=== PATIENT | male | born 1960 | race Caucasian/White ===

== ENCOUNTER → 2020-02-20 10:36 | Outpatient (CLI) | payer OTHER, SELFPAY ==
--- NOTE | ~2020-02-20 | CT_ITS ---
EXAMINATION: CT lung screening DATE: 02/20/2020 10:49 INDICATION: Personal history of tobacco dependence, current smoker with 30 pack year history TECHNIQUE: Computed tomography (CT) of the chest was performed without intravenous contrast. The dose -length product (DLP) was 52.91 mGy-cm. Automated exposure control and iterative reconstruction techn ique were employed. COMPARISON: None FINDINGS: There is moderate emphysema. Scattered small pulmonary nodules are identified. The largest measures 2 mm in the left upper lobe. Calcified pulmonary nodules and calcified bilateral hilar and m ediastinal lymph nodes are consistent with old granulomatous disease. The lungs are free of acute op acities. There is no pleural effusion or pneumothorax. There is calcified coronary artery atheroscler osis. The heart size is normal. There are no pathologically enlarged thoracic lymph nodes. IMPRESSION: 1. Lung-RADS category 2: Benign appearance or behavior. Continue annual screening with noncontrast lo w-dose chest CT in 12 months. Reviewed, dictated and finalized at location A. IMPRESSION: 1. Lung-RADS category 2: Benign appearance or behavior. Continue annual screeni ng with noncontrast low-dose chest CT in 12 months.
== END ==
PROVIDERS: PCP Family Medicine; Visit Provider Family Medicine
DX: Z12.2 Encounter for screening for malignant neoplasm of respiratory organs (principal); Z87.891 Personal history of nicotine dependence
CPT/HCPCS: G0297

== ENCOUNTER 2020-08-04 15:12 | Emergency (ER) | payer OTHER, SELFPAY ==
--- NOTE | 2020-08-04 15:17 | ED.MALEGU ---
HPI - Male Genitourinary General Chief complaint: Urogenital-Male Stated complaint: BLOOD IN URINE Source: patient Mode of arrival: ambulatory Limitations: no limitations History of Present Illness HPI Narrative: Patient is a 59-year-old male who presents complaining of hematuria. He denies urinary frequency, urgency or dysuria. He denies exposure STD. He reports pink-tinged urine this a.m. which has progressed to dark red urine at this time. He denies pain, he denies flank pain, fever or other complaints. Patient is not on anticoagulants at this time. MD Complaint: other (Hematuria) Related Data Home Medications Medication Instructions Recorded Confirmed Centrum Silver Men 1 tablet PO DAILY 08/04/20 08/04/20 Allergies Allergy/AdvReac Type Severity Reaction Status Date / Time No Known Allergies Allergy Verified 08/04/20 15:18 Review of Systems Review of Systems: Narrative: CONSTITUTIONAL: Denies fever, chills, or sweats. EYES: Denies visual changes, redness, or discharge. ENT: Denies rhinorrhea, congestion, sore throat, or otalgia. CARDIOVASCULAR: Denies chest pain, palpitations, or edema. RESPIRATORY: Denies cough or dyspnea. GASTROINTESTINAL: Denies abdominal pain, nausea, vomiting, or diarrhea. GENITOURINARY: Reports hematuria. SKIN: Denies rash or itching. MUSCULOSKELETAL: Denies back pain, joint pain, or myalgia. NEUROLOGIC: Denies headache, numbness, dizziness, or weakness. PSYCHIATRIC: Denies anxiety or depression. PMFSH Past Medical History Medical History Other and unspecified alcohol dependence, continuous drinking behavior Tobacco use Family History Family History Sibling Carcinoma of colon Family history of lung cancer Mother Family history of malignant neoplasm of breast Father Family history of throat cancer Social History Social History Gender identity (if verbalized by the patient): Male Exam Narrative: Exam Narrative: GENERAL: Well-appearing, well-nourished, and in no acute distress. HEAD: Normocephalic, atraumatic. EYES: No redness or drainage. ENT: Mucous membranes pink and moist. CHEST: No respiratory distress. Clear to auscultation. HEART: Regular rate and rhythm. GI: Soft, nontender without rebound, or guarding. No distention. MUSCULOSKELETAL: No bony tenderness. EXTREMITIES: Normal range of motion. No edema. SKIN: Warm, dry, no rash. NEURO: No focal deficits. Alert and oriented x3. Gait steady. PSYCH: Normal affect. No signs of depression or anxiety. MDM - Male Genitourinary MDM Narrative Medical decision making narrative: Patient has gross hematuria. Patient's UA shows 3+ blood, without leukocytes or nitrates. Patient denies dysuria or other complaints. Discussed with patient the need to follow-up with urology next week as patient has a significant family history for cancer, and is a current smoker of 30+ years. Patient aware that if he is unable to urinate or begins to experience pain, he is to go to the emergency department immediately for further evaluation. Patient is stable for discharge to home with outpatient follow-up as discussed. Differential Diagnosis Differential diagnosis: Likely other (Hematuria) Critical Care Time Critical Care Time Critical Care Time: No Discharge Plan Discharge Clinical Impression: Hematuria Patient Disposition: Home, Self-Care Condition: Stable Instructions: Hematuria (ED) Additional Instructions: Please follow-up with Dr. Mcneil or one of his partners on Thursday. Follow-up with your PCP as well. If you develop pain, difficulty urinating or inability to urinate, please go to the emergency department immediately for further evaluation. Prescriptions: No Action Centrum Silver Men 1 tablet PO DAILY RF: 0 atorvastatin 20 mg tablet 20 mg PO DAILY 90 Days Qty: 90 RF: 2 clobetas
[2020-08-04 15:20] VITALS: BP 152/67; PULSE 71; RESP 12; TEMP 36.7; O2SAT 100
== END 2020-08-04 16:12 | disposition home or self-care (01) ==
PROVIDERS: Emergency Provider Nurse Practitioner; PCP Family Medicine
DX: R31.9 Hematuria, unspecified (principal)
CPT/HCPCS: 81003; 99212; G0463

== ENCOUNTER 2020-08-13 07:27 | Outpatient (CLI) | payer OTHER, SELFPAY ==
--- NOTE | ~2020-08-13 | CT_ITS ---
EXAMINATION: CT abdomen pelvis wo/w con DATE: 08/13/2020 08:17 INDICATION: Gross hematuria. TECHNIQUE: Computed tomography (CT) of the abdomen and pelvis was performed without and with intraven ous contrast using a total of 130 mL Omnipaque-350 intravenous contrast with a double-bolus technique for simultaneous opacification of the renal parenchyma and renal collecting system. Automated exposu re control and iterative reconstruction technique were employed. The dose-length product was 539.07 m Gy-cm. COMPARISON: Chest CT 02/20/2020 FINDINGS: The visualized portions of the lung bases are clear without pneumonia or pleural effusion. The heart size is normal. No pericardial effusion. There are cysts in the liver measuring up to 5 mm. The gallb ladder is normal. Calcifications in the spleen are consistent with old granulomatous disease. The rodriguez creas, adrenal glands, and left kidney are normal. There is a 3 mm cyst in right kidney. There is no urolithiasis. Right ureter is well opacified and is normal. Left ureter is not well opacified in its middle third, but is normal. The bladder is not well distended. There are no dilated loops of bowel. The appendix is not visualized. There are no pathologically enlarged lymph nodes. There is no free in traperitoneal fluid. There is mild thoracolumbar spondylosis. IMPRESSION: 1. No etiology for hematuria. Reviewed, dictated and finalized at location A. 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
[2020-08-13 07:56] LABS: Estimated Glomerular Filt Rate > 60
== END 2020-08-13 07:28 | disposition home or self-care (01) ==
LOC: ANHIMG 07:31
PROVIDERS: PCP Family Medicine; Visit Provider Urology
DX: R31.0 Gross hematuria (principal)
CPT/HCPCS: 74178; Q9967

== ENCOUNTER 2021-02-14 14:36 | Outpatient (CLI) | payer OTHER, SELFPAY ==
--- NOTE | 2021-02-14 14:51 | ECHO_ITS ---
Patient Info Name: Prieto Harmon Age: 60 years : 1960 Gender: Male Ht: 70 in Wt: 125 lbs BSA: 1.66 m2 HR: 73 bpm BP: 122 / 80 mmHg Technical Quality: Good Exam Date: 02/14/2021 3:04 PM Exam Location: [facility] Patient Status: Outpatient Admit Date: 02/14/2021 Staff Ordering Physician: Lenora Patrick MD Dermatologist And Dermatopathologist: SAMMY Attending Provider: Lenora Patrick MD Referring Physician: Darnell ANTOINE; Exam Type: CA echo doppler color flow Study Info Indications I35.0 - Nonrheumatic aortic (valve) stenosis Complete two-dimensional, color flow and Doppler transthoracic echocardiogram is performed. Summary 1. Complete two-dimensional, color flow and Doppler transthoracic echocardiogram is performed. 2. Left ventricular chamber dimension is normal. 3. Left ventricular systolic function is normal, estimated at 60-65%. 4. There is mildly increased left ventricular wall thickness. 5. The left ventricular diastolic function is grade I diastolic dysfunction. 6. E/e' 10 is mildly elevated. 7. There is severe aortic valve sclerosis. 8. There is moderate aortic valve stenosis with a peak velocity of 257 cm/s, mean gradient of 16 mmHg, and aortic valve area of 1.2 cm2. 9. There is mild aortic valve regurgitation. 10. The mitral valve has moderately calcified leaflets. 11. No pulmonary hypertension, estimated pulmonary arterial systolic pressure is 15 mmHg. Left Ventricle E/e' 10 is mildly elevated. Left ventricular chamber dimension is normal. Left ventricular systolic function is normal, estimated at 60-65%. There is mildly increased left ventricular wall thickness. The left ventricular diastolic function is grade I diastolic dysfunction. Right Ventricle Right ventricular chamber dimension is normal. Right ventricular systolic function is normal. Left Atria Left atrial chamber dimension is normal. Right Atria Right atrial chamber dimension is normal. Aortic Valve The aortic valve is bicuspid. There is severe aortic valve sclerosis. There is moderate aortic valve stenosis with a peak velocity of 257 cm/s, mean gradient of 16 mmHg, and aortic valve area of 1.2 cm2. There is mild aortic valve regurgitation. Pulmonic Valve There is no pulmonic regurgitation. Mitral Valve The mitral valve has moderately calcified leaflets. There is no mitral valve stenosis. There is no mitral valve regurgitation. Tricuspid Valve There is no tricuspid valve regurgitation. No pulmonary hypertension, estimated pulmonary arterial systolic pressure is 15 mmHg. Pericardium/Pleural There is no pericardial effusion. Inferior Vena Cava Normal inferior vena cava with >50% collapse upon inspiration consistent with normal right atrial pressure, 5 mmHg. Aorta The aortic root size at the sinus of Valsalva is normal. Left Ventricular Outflow Tract Name Value Normal LVOT 2D LVOT Diameter 1.8 cm LVOT Doppler LVOT Peak Gradient 5 mmHg LVOT Mean Gradient 3 mmHg LVOT VTI 29 cm LVOT VTI/AV
== END 2021-02-14 14:37 | disposition home or self-care (01) ==
PROVIDERS: PCP Family Medicine; Visit Provider Family Medicine
DX: I35.0 Nonrheumatic aortic (valve) stenosis (principal); F17.210 Nicotine dependence, cigarettes, uncomplicated; I35.8 Other nonrheumatic aortic valve disorders
CPT/HCPCS: 93306

== ENCOUNTER → 2021-07-15 10:12 | Outpatient (CLI) | payer OTHER, SELFPAY ==
--- NOTE | ~2021-07-15 | CT_ITS ---
EXAMINATION:CT lung screening DATE: 07/15/2021 10:25 INDICATION: Personal history of nicotine dependence. Current smoker with 30 pack year history. TECHNIQUE: Computed tomography (CT) of the chest was performed without intravenous contrast. Automate d exposure control and iterative reconstruction technique were employed. The dose-length product (DLP ) was 56.13 mGy-cm. COMPARISON: Chest CT 03/18/2020 FINDINGS: There is moderate emphysema. A calcified left lung nodule and calcified left hilar lymph no balta are consistent with old granulomatous disease. There is stable mild scarring at the lung apices. No pleural effusion. The heart size is normal. There are coronary artery calcifications. No pericardi al effusion. There is ectasia of ascending aorta measuring 4.0 cm. There is mild thoracic spondylosis . IMPRESSION: 1. Lung-RADS category 2: Benign appearance or behavior. Continue annual screening with noncontrast lo w-dose chest CT in 12 months. Reviewed, dictated and finalized at location A. APPRAISER IMPRESSION: 1. Lung-RADS category 2: Benign appearance or behavior. Continue annual screeni ng with noncontrast low-dose chest CT in 12 months.
== END ==
PROVIDERS: PCP Family Medicine; Visit Provider Family Medicine
DX: Z87.891 Personal history of nicotine dependence (principal)
CPT/HCPCS: 71271

== ENCOUNTER 2022-05-30 09:32 | Outpatient (CLI) | payer OTHER, SELFPAY ==
--- NOTE | 2022-05-30 12:49 | WPDPFTINT ---
PFT Procedure Performed PFT Procedure Performed Spirometry with Pre/Post Bronchodilator Plethysmography (Lung Vol) Diffusing Cap (DLCO) Flow Vol Loop PFT Interpretation Lung volumes were measured with the body plethysmography method. Lung volumes are unremarkable. Spirometry showed normal expiratory flow rates and a normal FEV1 to FVC ratio 66%. Following administration of a bronchodilator there was no significant increase in expiratory flow rates. Lung diffusion capacity is within the normal range at 81% predicted. The flow volume loop is unremarkable. Impression: Spirometry, lung volumes, and lung diffusion capacity all within normal range.
== END 2022-05-30 09:33 | disposition home or self-care (01) ==
PROVIDERS: PCP Family Medicine; Visit Provider Family Medicine
DX: J43.9 Emphysema, unspecified (principal); I27.20 Pulmonary hypertension, unspecified
CPT/HCPCS: 94060; 94726; 94729

== ENCOUNTER 2022-10-27 00:24 | Day surgery (SDC) | payer OTHER, SELFPAY ==
[2022-10-24 14:19] VITALS: BMI 19.3
[2022-10-27] VITALS (9 sets, daily range): BP systolic 111–143; BP diastolic 67–84; PULSE 63–81; RESP 11–17; TEMP 36.6; O2SAT 95–100; BMI 18.2
--- NOTE | 2022-10-27 08:42 | WPDMODSED ---
Moderate Sedation Note-Pt Data Patient Data Diagnosis: Aortic regurgitation/stenosis, possible bicuspid aortic valve Present Complaint: None History and physical update: Patient is a 62-year-old male history of hypertension hyperlipidemia, tobacco abuse with aortic stenosis and regurgitation and possible bicuspid aortic valve with ascending aortic aneurysm referred for transesophageal echocardiogram for further clarification anatomy of his aortic valve. Impression: Aortic stenosis with regurgitation Hypertension Ascending aortic aneurysm Dyslipidemia Tobacco abuse Pulmonary hypertension Plan of care: Transesophageal echocardiogram for further clarification anatomy of aortic valve with further recommendations to follow. Risks benefits and alternatives discussed in detail. Patient verbalized understanding and agreed with plan of care. Procedure to be performed/Plan: Transesophageal echocardiogram Allergies Allergy/AdvReac Type Severity Reaction Status Date / Time No Known Allergies Allergy Verified 10/27/22 07:12 Home Medications Medication Instructions Recorded Confirmed Type Centrum Silver Men 1 tablet PO DAILY 08/04/20 10/27/22 History clobetasol 0.05 % topical ointment 1 applic topical BID #80 grams 12/27/20 10/24/22 Rx atorvastatin 20 mg tablet See Rx Instructions .Route 07/22/22 10/27/22 Rx .COMPLEX #90 tabs metoprolol succinate 25 mg See Rx Instructions .Route 07/22/22 10/27/22 Rx tablet,extended release 24 hr .COMPLEX #90 tabs Sedation/Anesthesia: No previous sedation/anesthesia problems (including family history). [facility] Past Medical History Medical History Normal cystoscopy : bph present. otherwise negative Other and unspecified alcohol dependence, continuous drinking behavior Tobacco use Family History Family History Sibling Carcinoma of colon Family history of lung cancer Mother Family history of malignant neoplasm of breast Father Family history of throat cancer Social History Social History Smoking packs per day: 0.75 Smoking cigarettes per day: 15.0 Years smoked: 40 Smoking pack-years: 30.00 Smoking status: Current every day smoker Tobacco type: cigarettes Alcohol intake: former Substance use: never Substance use type: does not use Living arrangements: with family Gender identity (if verbalized by the patient): Male Spiritual care concerns: No Mod Sed Physical Exam Physical Exam Pre Procedural Exam: Normal: Appearance, Eyes, Ears, Nose, Neck (Neck supple, normal range of motion), Throat (Posterior hypopharynx clear, nonerythematous), Airway (Normal anatomy, no obstruction), Lungs (Clear to auscultation bilaterally), Heart Size, Heart Rate, Heart Rhythm, Neuro Exam, Abdomen, Liver, Extremities and Skin Hours since solid foods: 12 Hours since liquid intake: 12 Mallampati Classification: class III Internal Medicine - PN: Obj Da Vital Signs Vital Signs: Vital Signs - 24 hr 10/27/22 07:14 Temperature 36.6 C Pulse Rate 66 Respiratory Rate 17 Blood Pressure 120/72 Pulse Oximetry 96 Oxygen Delivery Room Air ASA Classification/Sedation ASA Classification/Sedation ASA Class: III Emergent: No Risks: Risks, benefits and alternatives explained and patient/family accepted plan for sedation. Patient re-evaluated immediately prior to sedation.
--- NOTE | 2022-10-27 09:21 | WPDTEECHO ---
COURTNEY TransEsophageal Echocardiogram Date of procedure: 10/27/22 Procedure Type: Transesophageal echocardiogram Diagnosis: Aortic stenosis/regurgitation, ascending aortic aneurysm Indications: Aortic stenosis/regurgitation, ascending aortic aneurysm Image Quality: Acceptable Findings: Brief history present illness: Patient is a pleasant 62-year-old male with a history of hypertension, aortic stenosis, aortic regurgitation, ascending aortic aneurysm, tobacco abuse referred for transesophageal echocardiogram for further evaluation for aortic stenosis and regurgitation of possible bicuspid aortic valve. Procedure in detail: After verbal and written informed consent was obtained the patient risks, benefits, and alternatives explained in detail the patient agreed to proceed with the plan of care as outlined above. The patient was evaluated at bedside in the [facility] procedure room. The posterior oropharynx, neck, and jaw angle all within normal limits on examination. Lungs were clear to auscultation. See pre-sedation note for further details The patient was then placed in the appropriate 30 to 45 degree angle supine position at a slight left lateral decubitus position. Patient was monitored throughout the study with telemetry, oxygen saturation, end-tidal CO2 monitoring, blood pressure, heart rate, and respirations. The posterior hypopharynx was then locally anesthetized using repeated administration of Hurricaine spray as well as gargled viscous lidocaine. After local anesthetic of the posterior hypopharynx was achieved and the oral bite block placed, moderate sedation was administered. After confirmation of adequate moderate sedation, the transesophageal echocardiogram probe was advanced through the oral bite block into the posterior hypopharynx and into the esophagus easily and without complication. Multiple, multiplanar echocardiographic images were obtained in multiple standard re- projections. Pulsed wave, continuous-wave, and color-flow Doppler were utilized in conjunction with this study. At the conclusion of the study, the transesophageal echocardiogram probe was removed easily and without complication. The patient tolerated the procedure well without difficulty. Patient was in sinus rhythm throughout the study. Moderate Sedation/Anesthesia administration: Patient reports no prior problems with sedation/anesthesia. Please see pre-sedation noted for physical examination documentation. As noted above, after adequate local anesthesia of the posterior hypopharynx was achieved, a total of 2 mg intravenous Versed and a total of 75 mcg intravenous Fentanyl in multiple divided doses was administered for moderate sedation. Sedation start time was 0853 and end time was 0916 for a total intra-service/procedure face-face time of 23 minutes. Sedation was administered by a qualified/certified observer Hali Douglas RN under my supervision with intra-procedure [id number] observation and management throughout the entirety of the procedure. There were no other issues or complications and patient tolerated the procedure well. See post-anesthesia documentation. FINDINGS: LEFT VENTRICLE: Size and systolic function were within normal limits without wall motion abnormalities with ejection fraction of 60%. Mild concentric left ventricle hypertrophy. RIGHT VENTRICLE: Size and systolic function within normal limits. LEFT ATRIUM: Normal size. RIGHT ATRIUM: Normal size. Chiari network, normal variant. INTERATRIAL SEPTUM: Interatrial septum is anatomically normal without evidence of shunt with color-flow Doppler nor with injection of agitated saline. MITRAL VALVE: Mitral valve is anatomically normal with thickening of the anterior mitral valve leaflet with mild calcification otherwise preserved leaflet excursion and mild regurgitation. No mobile masses identified. AORTIC VALVE: The aortic valve appeared to be an anatomically normal 3 leaflet struc
--- NOTE | 2022-10-27 11:47 | WPDHPUPDATE1 ---
History and Physical Update Update Date/Time: 10/27/22 08:40 History and Physical has been reviewed, including an updated exam of the patient. There are NO changes in the patient's condition. Risks, benefits, and alternatives have been discussed and questions answered. Patient agrees to proceed with procedure.
== END 2022-10-27 10:02 | disposition home or self-care (01) ==
PROVIDERS: PCP Family Medicine; Visit Provider Internal Medicine Cardiovascular Disease
PROC: (CPT 93312; principal; 2022-10-27 08:30)
DX: I35.2 Nonrheumatic aortic (valve) stenosis with insufficiency (principal); I34.0 Nonrheumatic mitral (valve) insufficiency; I10 Essential (primary) hypertension; E78.5 Hyperlipidemia, unspecified; I71.21 Aneurysm of the ascending aorta, without rupture; I27.20 Pulmonary hypertension, unspecified; F17.210 Nicotine dependence, cigarettes, uncomplicated
CPT/HCPCS: 93312; 93320; 93325; J2250; J3010; J7040

== ENCOUNTER → 2023-05-20 08:45 | Outpatient (CLI) | payer OTHER, SELFPAY ==
--- NOTE | ~2023-05-20 | CT_ITS ---
EXAMINATION: CTA chest DATE: 05/20/2023 09:39 INDICATION: Congenital insufficiency of aortic valve. Aortic stenosis. TECHNIQUE: Computed tomographic angiography (CTA) of the chest was performed with 100 mL Omnipaque-35 0 intravenous contrast. Automated exposure control and iterative reconstruction technique were employ ed. The dose-length product was 256.55 mGy-cm. Maximum intensity projection 3D-reconstructions of the aorta and other arteries were constructed by the technologist on a separate workstation. COMPARISON: Chest CT 07/15/2021 FINDINGS: There is moderate emphysema. There is mild scarring at the lung apices. A calcified left bryant ng nodule and calcified left hilar and mediastinal lymph nodes are consistent with old granulomatous disease. No pleural effusion. The heart size is normal. No pericardial effusion. There are coronary a rtery calcifications. There are calcifications of the aortic valve. The aorta measures 3.9 cm at the sinuses of Valsalva, 3.2 cm at the sinotubular junction, 3.8 cm the mid ascending aorta, 2.4 cm at th e aortic isthmus, and 2.5 cm in the mid descending aorta. IMPRESSION: 1. Calcifications of the aortic valve. Normal caliber of the aorta. 2. Moderate emphysema. Reviewed, dictated and finalized at location E.
[2023-05-20 09:25] LABS: Estimated Glomerular Filt Rate > 60
== END ==
PROVIDERS: PCP Family Medicine; Visit Provider Internal Medicine Cardiovascular Disease
DX: Q23.0 Congenital stenosis of aortic valve (principal); I77.810 Thoracic aortic ectasia; I70.0 Atherosclerosis of aorta; J43.9 Emphysema, unspecified; Q23.1 Congenital insufficiency of aortic valve
CPT/HCPCS: 71275; Q9967

== ENCOUNTER 2023-06-08 07:45 | Day surgery (SDC) | payer OTHER, SELFPAY ==
[2023-04-15 10:48] VITALS: BMI 18.0
[2023-06-08 08:38] VITALS: BP 110/75; PULSE 78; RESP 14; TEMP 36.6; O2SAT 98
[2023-06-08] MEDS: LACTATED RINGERS 1,000 ML 150 ML IV CONT (08:50)
--- NOTE | 2023-06-08 08:56 | PM.HPGS ---
History of Present Illness History of Present Illness Consent: Risks, benefits, and alternatives have been discussed and questions answered. Patient agrees to proceed with procedure. Chief complaint: Family History of Colon Cancer Narrative: Prieto Harmon is a 62 year old male Presents for screening colonoscopy. Reports his current weight appetite and is are normal. Patient denies abdominal pain. Has had no bleeding. Chart reflects that family history is positive for colon cancer.. His brother had colon cancer. Patient presents today for screening exam. Exam 5 years ago revealed benign hyperplastic polyps. Review of Systems Review of Systems: Review of Systems is noncontributory. [facility] Past Medical History Medical History Normal cystoscopy : bph present. otherwise negative Other and unspecified alcohol dependence, continuous drinking behavior Tobacco use Family History Family History Sibling Carcinoma of colon Family history of lung cancer Mother Family history of malignant neoplasm of breast Father Family history of throat cancer Social History Social History Smoking packs per day: 1 Smoking cigarettes per day: 20.0 Years smoked: 40 Smoking pack-years: 40.00 Smoking status: Current every day smoker Tobacco type: cigarettes Alcohol intake: former Substance use: never Substance use type: does not use Lack of Transportation: No Lack of Food: Never True Current Housing: I Have Housing Concerned About Future Housing: No Difficulty Paying Gas/Electric Bills: Decline to Answer Difficulty Paying for Meds: Decline to Answer Currently Unemployed: No Education: High School Diploma/GED Difficulty w/ Childcare or Family Care: No Living arrangements: with family Gender identity (if verbalized by the patient): Male Spiritual care concerns: No Meds Home Medications and Allergies Home Medications Medication Instructions Recorded Confirmed Type Centrum Silver Men 1 tablet PO DAILY 08/04/20 06/08/23 History clobetasol 0.05 % topical ointment 1 applic topical BID #80 grams 12/27/20 06/08/23 Rx atorvastatin 20 mg tablet See Rx Instructions .Route 07/22/22 06/08/23 Rx .COMPLEX #90 tabs metoprolol succinate 25 mg See Rx Instructions .Route 07/22/22 06/08/23 Rx tablet,extended release 24 hr .COMPLEX #90 tabs Allergies Allergy/AdvReac Type Severity Reaction Status Date / Time No Known Allergies Allergy Verified 06/08/23 08:35 Vital Signs Vital Signs - 24 hr 06/08/23 08:38 Temperature 97.9 F Pulse Rate 78 Respiratory Rate 14 Blood Pressure 110/75 Pulse Oximetry 98 Oxygen Delivery Room Air Exam Narrative: physical exam reveals patient to be alert. Vital signs stable. HEENT exam is unremarkable. Patient is anicteric. Lungs are clear to auscultation and percussion. Without murmur or extra sounds sounds are present soft nontender with no organomegaly. Digital external rectal exam is normal. Assessment and Plan Assessment and plan (1) Family history of malignant neoplasm of digestive organs: Code(s): Z80.0 - Family history of malignant neoplasm of digestive organs Status: Acute Assessment and Plan: FamilyHistory of colon cancer. Plan for surveillance colonoscopy at 5 year intervals.
--- NOTE | 2023-06-08 09:05 | WPDANESEPPF ---
Anes - Initial Pre Proc Eval Procedure: Operation Date: 06/08/23 10:00 Proposed Procedures p Diagnostic Colonoscopy - James Avalos MD Date/Time: 06/08/23 09:05 Surgeon: James Avalos MD Pre Op Diagnosis: Family History of Colon Cancer Patient Data Age: 62 Gender: M Height: 1.78 m Weight: 57.05 kg Last Vital Signs Temp 36.6 C 06/08/23 08:38 Pulse 78 06/08/23 08:38 Resp 14 06/08/23 08:38 BP 110/75 06/08/23 08:38 Pulse Ox 98 06/08/23 08:38 O2 Del Method Room Air 06/08/23 08:38 Allergies Allergy/AdvReac Type Severity Reaction Status Date / Time No Known Allergies Allergy Verified 06/08/23 08:35 Home Medications Medication Instructions Recorded Confirmed Type Centrum Silver Men 1 tablet PO DAILY 08/04/20 06/08/23 History clobetasol 0.05 % topical ointment 1 applic topical BID #80 grams 12/27/20 06/08/23 Rx atorvastatin 20 mg tablet See Rx Instructions .Route 07/22/22 06/08/23 Rx .COMPLEX #90 tabs metoprolol succinate 25 mg See Rx Instructions .Route 07/22/22 06/08/23 Rx tablet,extended release 24 hr .COMPLEX #90 tabs Patient hx anesthesia problems: none Family hx anesthesia problems: none Results Review: All pre-operative results and documents have been reviewed as part of the pre-operative evaluation. [facility] Past Medical History Medical History Normal cystoscopy : bph present. otherwise negative Other and unspecified alcohol dependence, continuous drinking behavior Tobacco use Family History Family History Sibling Carcinoma of colon Family history of lung cancer Mother Family history of malignant neoplasm of breast Father Family history of throat cancer Social History Social History Smoking packs per day: 1 Smoking cigarettes per day: 20.0 Years smoked: 40 Smoking pack-years: 40.00 Smoking status: Current every day smoker Tobacco type: cigarettes Alcohol intake: former Substance use: never Substance use type: does not use Lack of Transportation: No Lack of Food: Never True Current Housing: I Have Housing Concerned About Future Housing: No Difficulty Paying Gas/Electric Bills: Decline to Answer Difficulty Paying for Meds: Decline to Answer Currently Unemployed: No Education: High School Diploma/GED Difficulty w/ Childcare or Family Care: No Living arrangements: with family Gender identity (if verbalized by the patient): Male Spiritual care concerns: No Anes - Eval Final PreProcedure Day of Procedure 06/08/23 09:05 Patient weight: thin Heart: regular rate and rhythm Lungs: clear to auscultation Airway: Mallampati scale class II and other (dentures) Neurological: alert and oriented Last oral intake: >/= 8 hours ASA classification: III Emergent: no Anesthetic plan: proceed Anesthesia type and monitoring: general GIVS Results Review: All pre-operative results and documents have been reviewed as part of the pre-operative evaluation. Informed Consent: The patient's anesthetic plan and its attendant risks and benefits were discussed with the patient/family/POA. Questions were solicited and answers provided to the satisfaction of the patient/family/POA.
[2023-06-08 10:00] VITALS: BP 89/44; PULSE 69; RESP 16; O2SAT 100
[2023-06-08 10:10] VITALS: BP 102/65; PULSE 64; RESP 16; O2SAT 100
--- NOTE | 2023-06-08 10:11 | WPDANESPN ---
Anes - Prog Note Post-Op Date/Time: 06/08/23 10:11 Cardiovascular status: normal Respiratory status: normal Airway patency: baseline Mental status: baseline Post-Op hydration status: normal Vital Signs: Last Vital Signs Temp 36.6 C 06/08/23 08:38 Pulse 69 06/08/23 10:00 Resp 16 06/08/23 10:00 BP 89/44 L 06/08/23 10:00 Pulse Ox 100 06/08/23 10:00 O2 Del Method Room Air 06/08/23 10:00 Pain Score (VAS): 0/10 Patient Feedback: Patient satisfied with anesthetic care.
[2023-06-08 10:27] VITALS: BP 118/68; PULSE 65; RESP 16; O2SAT 100
== END 2023-06-08 10:35 | disposition home or self-care (01) ==
PROVIDERS: PCP Family Medicine; Visit Provider Internal Medicine Gastroenterology
PROC: 0DJD8ZZ Inspection of Lower Intestinal Tract, Via Natural or Artificial Opening Endoscopic (ICD-10-PCS; CPT 45378; principal; 2023-06-08 10:00)
DX: Z80.0 Family history of malignant neoplasm of digestive organs (principal); K64.8 Other hemorrhoids
CPT/HCPCS: 45378

== ENCOUNTER 2024-05-24 09:21 | Outpatient (CLI) | payer OTHER, SELFPAY ==
--- NOTE | 2024-05-24 09:26 | ECG_ITS ---
Test Date: 2024-05-24 09:32:07 Measurements Intervals [place] Rate: 69 P: 76 MT: 179 QRS: -52 QRSD: 106 T: 55 QT: 417 QTc: 447 Interpretive Statements SINUS RHYTHM INCOMPLETE RIGHT BUNDLE BRANCH BLOCK LEFT ANTERIOR FASCICULAR BLOCK ANTEROSEPTAL INFARCT, AGE INDETERMINATE PEAKED T WAVES- CONSIDER HYPERKALEMIA BASELINE ARTIFACT- I, II, AVR, AVL, AVF, V1-V6 ABNORMAL ECG No previous ECG available for comparison Electronically Signed On 05-24-2024 09:55:38 [employer] by Davy Fragoso D.O.
== END 2024-05-24 09:22 | disposition home or self-care (01) ==
LOC: ANHSURGERY 09:24
PROVIDERS: PCP Family Medicine; Visit Provider Surgery
DX: K40.90 Unilateral inguinal hernia, without obstruction or gangrene, not specified as recurrent (principal); I10 Essential (primary) hypertension; Z01.818 Encounter for other preprocedural examination
CPT/HCPCS: 36415; 86850; 86900; 86901; 93005

== ENCOUNTER 2024-05-30 00:45 | Day surgery (SDC) | payer OTHER, SELFPAY ==
[2024-05-20 11:43] VITALS: BMI 17.9
--- NOTE | 2024-05-20 11:48 | PC.NURSE ---
Report to the Outpatient Waiting Room, entrance under the green pavilion located off [facility], at time _1130_ on date _[phone]_. Planned Procedure Time: _130pm_.? Time changes happen often and if your time is changed the preop area will call you the afternoon before. - You and your visitor will be asked to self-screen and do not enter if you have any COVID symptoms. Please call surgeon if you need to reschedule. - A mask is optional within the hospital at this time. Patients may have clear liquids (water, carbonated beverages, clear teas, apple juice) until 3 hours prior to surgery with a maximum of 20 ounces. - No food from midnight until time of surgery and no smoking Take only the following medications with a SIP of water on the morning of surgery: ___None___ DO NOT STOP ANY OF YOUR OTHER PRESCRIPTION MEDICATIONS PRIOR TO SURGERY EXCEPT THE FOLLOWING Medications to discontinue per physician ___Vitamin Date to take last stan__[id number]___ Please no make-up, nail pashto, hairspray, perfume, deodorant, or body powder the day of surgery.? No jewelry (including any body piercings) or valuables the day of surgery, leave them at home.? Please take a shower or bath the night before, or the morning of, surgery with an antibacterial soap.? Wear comfortable, loose fitting clothing.? - Jewelry must be removed prior to entering the operating room.? Rings and piercings that are not removed may be cut off. - The hospital will not accept responsibility for valuables.? - Please leave all valuables, including medications, at home the day of surgery. If you are going home after surgery, a licensed skidder driver must drive you home.? - NO public transportation without another adult if you receive anesthesia. - We recommend that an adult stay with you for 24 hours following discharge. - We also recommend that you do not drive, make important decision, drink alcoholic beverages, or take any drugs that were not prescribed by your health care provider for at least 24 hours after your discharge time. Follow any additional instructions given to you from your surgeon. Telephone instructions given to _Prieto__and asked if any additional questions and then verbalized understanding. Patient advised to call surgeon office or pre surgery nurse liaison [phone] if any additional questions.
[2024-05-30] VITALS (9 sets, daily range): BP systolic 120–146; BP diastolic 60–74; PULSE 62–72; RESP 12–16; TEMP 36.6–36.7; O2SAT 98–100
--- NOTE | 2024-05-30 07:26 | PM.IMHP ---
H&P: HPI History of Present Illness Date/Time: 05/30/24 07:26 Chief Complaint: right inguinal Narrative: Prieto is a 63 y/o male who presents with right groin pain at the request of Dr. Patrick. He first experienced symptoms on March 17. He reports the area is more symptomatic with activity. There is a noticeable bulge. He is unsure if it reduces. He is having regular BM's without issues. Review of Systems Review of Systems: All systems reviewed & are unremarkable except as noted in HPI and below PMFSH Past Medical History Medical History Aortic stenosis mild Hyperlipidemia Hypertension Normal cystoscopy : bph present. otherwise negative Other and unspecified alcohol dependence, continuous drinking behavior Pulmonary hypertension Tobacco use Family History Family History Sibling Carcinoma of colon Family history of lung cancer Mother Family history of malignant neoplasm of breast Father Family history of throat cancer Social History Social History Smoking packs per day: 0.75 Smoking cigarettes per day: 15.0 Years smoked: 37 Smoking pack-years: 27.75 Smoking status: Current every day smoker Tobacco type: cigarettes Alcohol intake: former Alcohol use details: none fore 17 years. Substance use: never Substance use type: does not use Do You Feel Safe in your Home?: Yes Lack of Transportation: No Lack of Food: Never True Current Housing: I Have Housing Concerned About Future Housing: No Difficulty Paying Gas/Electric Bills: Decline to Answer Difficulty Paying for Meds: Decline to Answer Currently Unemployed: No Education: High School Diploma/GED Difficulty w/ Childcare or Family Care: No Living arrangements: with family Gender identity (if verbalized by the patient): Male Spiritual care concerns: No Meds Home Medications and Allergies Home Medications Medication Instructions Recorded Confirmed Type Centrum Silver Men 1 tablet PO DAILY 08/04/20 05/20/24 History clobetasol 0.05 % topical ointment 1 applic topical BID #80 grams 12/27/20 05/20/24 Rx atorvastatin 20 mg tablet See Rx Instructions .Route 07/21/23 05/20/24 Rx .COMPLEX #90 tabs metoprolol succinate 25 mg See Rx Instructions .Route 12/22/23 05/20/24 Rx tablet,extended release 24 hr .COMPLEX #90 tabs finasteride 5 mg tablet 5 mg PO DAILY #90 tabs 03/17/24 05/20/24 Rx Allergies Allergy/AdvReac Type Severity Reaction Status Date / Time No Known Allergies Allergy Verified 05/20/24 11:42 Exam Const: General: cooperative, comfortable and no acute distress Resp: Auscultation: clear to auscultation bilaterally Cardio: Rate: regular rate Rhythm: regular rhythm GI: Inspection: normal to inspection and non-distended GI Palp: Yes abdominal tenderness, Yes Soft to palpation, Yes Tenderness to palpation present (GI) and Yes Hernia present Other: large reducible right inguinal hernia Assessment and Plan Assessment and plan (1) Right inguinal hernia: Code(s): K40.90 - Unilateral inguinal hernia, without obstruction or gangrene, not specified as recurrent Status: Acute Assessment and Plan: will set up for robotic assisted right inguinal hernia repair with mesh, cardiac clearance obtained
--- NOTE | 2024-05-30 07:28 | WPDHPUPDATE1 ---
History and Physical Update Update Date/Time: 05/30/24 07:28 History and Physical has been reviewed, including an updated exam of the patient. There are NO changes in the patient's condition. Risks, benefits, and alternatives have been discussed and questions answered. Patient agrees to proceed with procedure.
[2024-05-30] MEDS: KETOROLAC 15 MG/ML VIAL (*BKC) IV PUSH (12:00)
[2024-05-30] MEDS: ACETAMINOPHEN 500 MG TABLET 1000 MG PO (12:00)
[2024-05-30] MEDS: LACTATED RINGERS 1,000 ML 30 ML IV CONT ×3 (12:00→16:56)
[2024-05-30 12:24] LABS: Glucose Point of Care 95 mg/dl (65-105)
--- NOTE | 2024-05-30 13:37 | WPDANESEPPF ---
Anes - Initial Pre Proc Eval Procedure: Operation Date: 05/30/24 13:30 Proposed Procedures p Robotic Assisted Right Inguinal Hernia Repair with Mesh - Annabelle Rocha MD Date/Time: 05/30/24 13:37 Surgeon: Annabelle Rocha MD Pre Op Diagnosis: Rt Ing Hernia Patient Data Age: 63 Gender: M Height: 1.8 m Weight: 58.2 kg Allergies Allergy/AdvReac Type Severity Reaction Status Date / Time No Known Allergies Allergy Verified 05/20/24 11:42 Home Medications Medication Instructions Recorded Confirmed Type Centrum Silver Men 1 tablet PO DAILY 08/04/20 05/20/24 History clobetasol 0.05 % topical ointment 1 applic topical BID #80 grams 12/27/20 05/20/24 Rx atorvastatin 20 mg tablet See Rx Instructions .Route 07/21/23 05/20/24 Rx .COMPLEX #90 tabs metoprolol succinate 25 mg See Rx Instructions .Route 12/22/23 05/20/24 Rx tablet,extended release 24 hr .COMPLEX #90 tabs finasteride 5 mg tablet 5 mg PO DAILY #90 tabs 03/17/24 05/20/24 Rx Laboratory Tests 05/30/24 12:21 POC Capillary Glucose 95 mg/dl (65-105) Patient hx anesthesia problems: none Family hx anesthesia problems: none Results Review: All pre-operative results and documents have been reviewed as part of the pre-operative evaluation. [facility] Past Medical History Medical History Aortic stenosis mild Hyperlipidemia Hypertension Normal cystoscopy : bph present. otherwise negative Other and unspecified alcohol dependence, continuous drinking behavior Pulmonary hypertension Tobacco use Family History Family History Sibling Carcinoma of colon Family history of lung cancer Mother Family history of malignant neoplasm of breast Father Family history of throat cancer Social History Social History Smoking packs per day: 0.75 Smoking cigarettes per day: 15.0 Years smoked: 37 Smoking pack-years: 27.75 Smoking status: Current every day smoker Tobacco type: cigarettes Alcohol intake: former Alcohol use details: none fore 17 years. Substance use: never Substance use type: does not use Do You Feel Safe in your Home?: Yes Lack of Transportation: No Lack of Food: Never True Current Housing: I Have Housing Concerned About Future Housing: No Difficulty Paying Gas/Electric Bills: Decline to Answer Difficulty Paying for Meds: Decline to Answer Currently Unemployed: No Education: High School Diploma/GED Difficulty w/ Childcare or Family Care: No Living arrangements: with family Gender identity (if verbalized by the patient): Male Spiritual care concerns: No Anes - Eval Final PreProcedure Day of Procedure 05/30/24 13:37 Patient weight: normal Heart: regular rate and rhythm and murmur Lungs: clear to auscultation Airway: Mallampati scale class II and other (no teeth) Neurological: alert and oriented Last oral intake: >/= 8 hours ASA classification: III Emergent: no Anesthetic plan: proceed Anesthesia type and monitoring: general ETT and standard monitoring Results Review: All pre-operative results and documents have been reviewed as part of the pre-operative evaluation. Informed Consent: The patient's anesthetic plan and its attendant risks and benefits were discussed with the patient/family/POA. Questions were solicited and answers provided to the satisfaction of the patient/family/POA.
[2024-05-30] MEDS: ceFAZolin 2 GM/D5W 50 ML 2 GM/50 ML BAG IVPB (13:49)
[2024-05-30] MEDS: BUPIVACAINE/EPINEPHRINE 0.5% 50 ML VIAL 30 ML INFILTRATE (13:56)
--- NOTE | 2024-05-30 15:00 | W.PM.PROC2 ---
Procedure Note - Detailed Date of Procedure 05/30/24 Pre-op Diagnosis Right inguinal hernia Post-op Diagnosis Same Procedure Performed robotic assisted right inguinal hernia repair with mesh Surgeon Annabelle Rocha MD Anesthesia General Indications 63-year-old male with progressively worsening right inguinal hernia over the last months Findings indirect right inguinal hernia Description of Procedure Patient was brought into the operating room and placed in the supine position. After adequate induction of general anesthesia, the patient was prepped and draped in normal sterile fashion. A time-out was then done to verify the patient's identity, as well as the procedure being performed. Began by making a 8 mm incision in the supraumbilical region, a Veress needle was then placed into the peritoneal cavity. CO2 gas was then insufflated and after adequate pneumoperitoneum was achieved, the Veress needle was removed. I then placed an 8 mm trocar through this incision. I then placed the endoscope through this trocar site and under direct visualization placed 2 further 8 mm ports in the right and left mid abdomen. The [employer] robot was then docked to the 3 trocar sites. I then scrubbed out and went to the robotic console. Upon examining the pelvis, it was noted that the patient had a moderate right inguinal hernia. The left side was examined and no hernia defect was noted. I began by making a preperitoneal flap approximately 6 cm superior to the defect. This flap was carried medially past the umbilical ligaments in laterally to the transversalis. It then began dissection of my medial compartment taking this down to the pubic tubercle. I then began the lateral dissection taking this down to the transversalis fascia. Once these compartments were achieved, I began dissection around the cord structures. A moderate sized indirect hernia was noted at this point. Using careful dissection, was able to reduce indirect hernia sac off the cord structures. Once this was adequately done, I went ahead and placed a large piece of 3D Max mesh into the abdominal cavity. The mesh was carefully positioned, centering the center of the mesh over the indirect defect. Once this was done, was very satisfied with our repair. Using 3-0 Vicryl sutures, I tacked the mesh medially to Carlos's ligament. Two lateral sutures were placed from the mesh to the transversalis fascia. I then closed the peritoneal flap with a running 2.0 V Lock suture. The abdomen was then desufflated, and all ports were removed. All incisions were then closed with the 4.0 monocryl suture. Dermabond was placed on each wound. The patient tolerated the procedure well, was extubated in the operating room postoperatively, and will now be transferred to the recovery room in stable condition. Implants large 3DMax mesh Estimated Blood Loss 10 Drains No Packing No Pathology None sent Complications No immediate complications Condition Stable Disposition PACU [facility] Billing Surgery - Charge Forward: Surgery Billing
[2024-05-30] MEDS: oxyCODONE HCL (*CRX) 5 MG TAB IR PO (16:10)
== END 2024-05-30 17:37 | disposition home or self-care (01) ==
PROVIDERS: PCP Family Medicine; Visit Provider Surgery
PROC: 8E0Y4CZ Robotic Assisted Procedure of Lower Extremity, Percutaneous Endoscopic Approach (ICD-10-PCS; CPT 49650; principal; 2024-05-30 13:30)
DX: K40.90 Unilateral inguinal hernia, without obstruction or gangrene, not specified as recurrent (principal); I10 Essential (primary) hypertension; E78.5 Hyperlipidemia, unspecified; I27.20 Pulmonary hypertension, unspecified; I35.0 Nonrheumatic aortic (valve) stenosis; F17.210 Nicotine dependence, cigarettes, uncomplicated
CPT/HCPCS: 49650; S2900; 82948; A9270; C1781; J0690; J1100; J1171; J1885; J2003; J2250; J2405; J2704; J3010; J7120